=== PATIENT | male | born 1955 ===

== ENCOUNTER → 2021-04-16 | Day surgery (SDC) | payer OTHER ==
[~2021-04-16] MED LIST: Heparin 1,000 UNITS/ML VIAL ONE
== END ==
LOC: SPEC 10:35
PROVIDERS: ATTEND Internal Medicine
PROC: 02HV33Z Insertion of Infusion Device into Superior Vena Cava, Percutaneous Approach (ICD-10-PCS; principal; 2021-04-16)
DX: A41.9 Sepsis, unspecified organism (principal); Z79.2 Long term (current) use of antibiotics
CPT/HCPCS: 36569; C1751; J1644